=== PATIENT | male | born 1965 | race Caucasian/White ===

== ENCOUNTER 2021-03-19 17:40 | Inpatient (IN) ==
[2021-03-19] MEDS ORDERED: Isovue-370 500 ML BOTTLE IVP ONE (18:33)
[2021-03-19] MEDS ORDERED: 0.9 % Sodium Chloride 1,000 ML IVC ONE ×2 (18:33→22:36)
[2021-03-19] MEDS ORDERED: Aspirin 325 MG TABLET PO ONE (18:49)
[2021-03-19 18:51] LABS: Basophils % 0.2 %; Eosinophils % 0.2 %; Hematocrit 42.8 % (37.5-50.1); Hemoglobin 14.1 g/dL (12.9-16.9); Immature Granulocytes % 0.7 % (0-4); Lymphocytes # 0.4 K/mcL (0.6-4.6); Lymphocytes % 2.8 %; Mean Corpuscular HGB Conc 32.9 g/dL (31.6-35.5); Mean Corpuscular Hemoglobin 28.3 pg (28.0-33.3); Mean Corpuscular Volume 85.9 fL (83.0-100.0); Mean Platelet Volume 9.7 fL (9.4-12.4); Monocytes # 0.2 K/mcL (0.0-1.3); Monocytes % 1.4 %; Neutrophils # 14.4 K/mcL (1.6-8.9); Platelet Count 413 K/mcL (140-400); Red Blood Count 4.98 M/mcL (4.19-5.50); Red Cell Distribution Width 15.7 % (11.5-14.5); Segmented Neutrophils % 94.7 %; White Blood Count 15.2 K/mcL (4.3-11.1)
[2021-03-19] MEDS ORDERED: *HR* Heparin 5,000 UNIT/ML VIAL ONE (18:53)
[2021-03-19] MEDS ORDERED: *HR* Ticagrelor 90 MG TABLET ONE (18:53)
[2021-03-19] MEDS ORDERED: Aspirin 81 MG TAB.CHEW ONE (18:53)
[2021-03-19] MEDS ORDERED: Aspirin 81 MG TAB.CHEW PO ONE (18:57)
[2021-03-19] MEDS ORDERED: *HR* Heparin 5,000 UNIT/ML VIAL IVP ONE (18:58)
[2021-03-19] MEDS ORDERED: *HR* Ticagrelor 90 MG TABLET PO ONE (18:58)
[2021-03-19 19:06] LABS: Alanine Aminotransferase 12 Units/L (7-52); Albumin 2.9 g/dL (3.5-5.7); Albumin/Globulin Ratio 0.9 (1.1-2.2); Aspartate Amino Transferase 16 Units/L (13-39); BUN/Creatinine Ratio 10 (6-26); Bilirubin,Direct 0.2 mg/dL (0.0-0.2); Bilirubin,Indirect 0.5 mg/dL (0.0-1.0); Bilirubin,Total 0.7 mg/dL (0.3-1.0); Blood Urea Nitrogen 6 mg/dL (6-20); Calcium 8.6 mg/dL (8.6-10.3); Carbon Dioxide 22 mEq/L (23-29); Chloride 94 mEq/L (98-107); Globulin 3.2 g/dL (2.4-3.5); Glucose 137 mg/dL (70-105); Osmolality,Calculated 268 (280-300); Potassium 3.3 mEq/L (3.5-5.1); Sodium 129 mEq/L (136-145); Total Protein 6.1 g/dL (6.4-8.9); eGFR For African Americans > 60 (> 60); eGFR For Non-African Americans > 60 (> 60)
[2021-03-19 19:11] LABS: Alkaline Phosphatase 59 Units/L (34-104)
[2021-03-19 19:16] LABS: Bacteria,Urine Few per hpf (None-Few); Bilirubin,Urine Negative (Negative); Blood,Urine Small (Negative); Clarity,Urine Turbid (Clear); Color,Urine Light-Orange (Yellow); Glucose,Urine (UA) 30 mg/dL (Normal); Hyaline Casts,Urine Few per lpf (None Seen); Ketones,Urine 10 mg/dL (Negative); Leukocyte Esterase,Urine Moderate (Negative); Mucus,Urine Few per lpf (None-Few); Nitrite,Urine Negative (Negative); PH,Urine 6.5 pH Units (5.0-8.0); Protein,Urine 50 mg/dL (Neg-Trace); Specific Gravity,Urine 1.021 (1.010-1.025); Urobilinogen,Urine Normal (Normal); WBC,Urine 15-30 per hpf (0-3)
[2021-03-19] MEDS ORDERED: 0.9 % Sodium Chloride 2,000 ML ONE (19:17)
[2021-03-19] MEDS ORDERED: *HR* Heparin 10,000 UNIT/10 ML VIAL ONE (19:17)
[2021-03-19] MEDS ORDERED: Nitroglycerin 1,000 MCG/5 ML VIAL IV ONE (19:17)
[2021-03-19] MEDS ORDERED: ISOVUE-370 200 ML INFUS..BTL ONE ×2 (19:17→20:13)
[2021-03-19] MEDS ORDERED: Heparin 1,000 UNITS/500 mL 500 ML ONE (19:17)
[2021-03-19] MEDS ORDERED: *HR* FentaNYL (PF) 100 MCG/2 ML VIAL ONE (19:28)
[2021-03-19] MEDS ORDERED: *HR* Midazolam HCl 2 MG/2 ML VIAL ONE (19:28)
[2021-03-19] MEDS ORDERED: *HR* Bivalirudin 250 MG VIAL IVC ONE (19:28)
[2021-03-19 19:31] LABS: Troponin I 0.74 ng/mL (< 0.04)
[2021-03-19] MEDS ORDERED: 0.9 % Sodium Chloride 1,000 ML ONE (20:16)
[2021-03-19] MEDS ORDERED: Nitroglycerin 0.4 MG TAB.SUBL SL PRN (21:08)
[2021-03-19] MEDS ORDERED: 0.9 % Sodium Chloride 1,000 ML IVC SCH (21:15)
[2021-03-19] MEDS ORDERED: Perflutren Lipid Microsphere 1.3 ML in 0.9 % Sodium Chloride 8.7 ML IVP PRN (21:37)
[2021-03-19] MEDS ORDERED: *HR* Atropine Sulfate 1 MG/10 ML SYRINGE ONE (23:18)
[2021-03-19] MEDS: Piperacillin/Tazobactam 3.375 GM in 0.9 % Sodium Chloride Mini Bag 100 ML IVPB SCH (23:38)
[2021-03-19] MEDS ORDERED: Ondansetron 4 MG/2 ML VIAL IVP PRN (23:43)
[2021-03-20] MEDS: Vancomycin 1,250 MG/262.5 ML IV.SOLN IVPB SCH ×2 (00:01→11:26)
[2021-03-20 01:05] LABS: BUN/Creatinine Ratio 11 (6-26); Blood Urea Nitrogen 5 mg/dL (6-20); Calcium 7.7 mg/dL (8.6-10.3); Carbon Dioxide 22 mEq/L (23-29); Chloride 100 mEq/L (98-107); Glucose 87 mg/dL (70-105); Osmolality,Calculated 273 (280-300); Potassium 3.3 mEq/L (3.5-5.1); Sodium 133 mEq/L (136-145); eGFR For African Americans > 60 (> 60); eGFR For Non-African Americans > 60 (> 60)
[2021-03-20] MEDS ORDERED: Isovue-370 500 ML BOTTLE IVP ONE ×2 (01:14→11:31)
[2021-03-20] MEDS ORDERED: Prochlorperazine 10 MG/2 ML VIAL IVP PRN ×2 (05:08→11:31)
[2021-03-20] MEDS ORDERED: *HR* Enoxaparin 40 MG/0.4 ML SYRINGE SQ SCH (06:00)
[2021-03-20] MEDS: Piperacillin/Tazobactam 3.375 GM in 0.9 % Sodium Chloride Mini Bag 100 ML IVPB SCH ×2 (08:41→16:42)
[2021-03-20] MEDS ORDERED: *HR* Ticagrelor 90 MG TABLET PO SCH (09:00)
[2021-03-20] MEDS ORDERED: Aspirin 81 MG TAB.CHEW PO SCH (09:00)
[2021-03-20] MEDS ORDERED: lisinopriL 5 MG TABLET PO SCH (09:00)
[2021-03-20 10:19] LABS: Basophils # 0.1 K/mcL (0.0-0.2); Basophils % 0.4 %; Eosinophils # 0.1 K/mcL (0.0-0.6); Hematocrit 37.6 % (37.5-50.1); Hemoglobin 12.6 g/dL (12.9-16.9); Immature Granulocytes % 0.7 % (0-4); Lymphocytes # 0.6 K/mcL (0.6-4.6); Lymphocytes % 4.5 %; Mean Corpuscular HGB Conc 33.5 g/dL (31.6-35.5); Mean Corpuscular Volume 86.4 fL (83.0-100.0); Mean Platelet Volume 9.1 fL (9.4-12.4); Monocytes # 0.4 K/mcL (0.0-1.3); Neutrophils # 12.1 K/mcL (1.6-8.9); Platelet Count 380 K/mcL (140-400); Red Blood Count 4.35 M/mcL (4.19-5.50); Red Cell Distribution Width 15.8 % (11.5-14.5); Segmented Neutrophils % 90.4 %; White Blood Count 13.4 K/mcL (4.3-11.1)
[2021-03-20 10:39] LABS: BUN/Creatinine Ratio 13 (6-26); Blood Urea Nitrogen 5 mg/dL (6-20); Calcium 7.8 mg/dL (8.6-10.3); Carbon Dioxide 23 mEq/L (23-29); Chloride 100 mEq/L (98-107); Glucose 84 mg/dL (70-105); Osmolality,Calculated 270 (280-300); Potassium 3.2 mEq/L (3.5-5.1); Sodium 132 mEq/L (136-145); eGFR For African Americans > 60 (> 60); eGFR For Non-African Americans > 60 (> 60)
[2021-03-20] MEDS ORDERED: Ondansetron 4 MG/2 ML VIAL IVP PRN (11:31)
[2021-03-20] MEDS ORDERED: Nitroglycerin 0.4 MG TAB.SUBL SL PRN (11:31)
[2021-03-20] MEDS: Metoprolol XL (24 HR) Succ 25 MG TAB.ER.24H PO SCH (14:09)
[2021-03-20] MEDS: Melatonin 3 MG TABLET PO PRN (20:01)
[2021-03-20] MEDS: *HR* Ticagrelor 90 MG TABLET PO SCH (20:02)
[2021-03-20 21:12] LABS: Acinetobacter baumannii by PCR Not Detected (Not Detect); Candida albicans by PCR Not Detected (Not Detect); Candida glabrata by PCR Not Detected (Not Detect); Candida krusei by PCR Not Detected (Not Detect); Candida parapsilosis by PCR Not Detected (Not Detect); Candida tropicalis by PCR Not Detected (Not Detect); Enterobacter cloacae Cmplx PCR Not Detected (Not Detect); Enterobacteriaceae by PCR Not Detected (Not Detect); Enterococcus by PCR Not Detected (Not Detect); Escherichia coli by PCR Not Detected (Not Detect); Klebsiella oxytoca by PCR Not Detected (Not Detect); Klebsiella pneumoniae by PCR Not Detected (Not Detect); Proteus by PCR Not Detected (Not Detect); Pseudomonas aeruginosa by PCR Not Detected (Not Detect); Serratia marcescens by PCR Not Detected (Not Detect); Staphylococcus aureus by PCR DETECTED (Not Detect); Streptococcus agalactiae(B)PCR Not Detected (Not Detect); Streptococcus by PCR Not Detected (Not Detect); Streptococcus pneumoniae PCR Not Detected (Not Detect); Streptococcus pyogenes (A) PCR Not Detected (Not Detect); mecA Methicillin-Resist Gene Not Detected (Not Detect)
[2021-03-20] MEDS ORDERED: Vancomycin 1,250 MG/262.5 ML IV.SOLN IVPB SCH (23:00)
[2021-03-21] MEDS: Piperacillin/Tazobactam 3.375 GM in 0.9 % Sodium Chloride Mini Bag 100 ML IVPB SCH ×4 (00:15→23:35)
[2021-03-21 05:33] LABS: Hematocrit 37.8 % (37.5-50.1); Hemoglobin 12.3 g/dL (12.9-16.9); Mean Corpuscular HGB Conc 32.5 g/dL (31.6-35.5); Mean Corpuscular Hemoglobin 28.4 pg (28.0-33.3); Mean Corpuscular Volume 87.3 fL (83.0-100.0); Mean Platelet Volume 9.6 fL (9.4-12.4); Platelet Count 411 K/mcL (140-400); Red Blood Count 4.33 M/mcL (4.19-5.50); Red Cell Distribution Width 15.6 % (11.5-14.5); White Blood Count 10.5 K/mcL (4.3-11.1)
[2021-03-21 05:49] LABS: Carbon Dioxide 26 mEq/L (23-29); Chloride 99 mEq/L (98-107); Glucose 83 mg/dL (70-105); Magnesium 1.8 mg/dL (1.6-2.6); Sodium 133 mEq/L (136-145); eGFR For African Americans > 60 (> 60); eGFR For Non-African Americans > 60 (> 60)
[2021-03-21] MEDS: *HR* Enoxaparin 40 MG/0.4 ML SYRINGE SQ SCH (05:52)
[2021-03-21 06:04] LABS: BUN/Creatinine Ratio 18 (6-26); Blood Urea Nitrogen 7 mg/dL (6-20); Osmolality,Calculated 273 (280-300)
[2021-03-21] MEDS: lisinopriL 5 MG TABLET PO SCH (07:43)
[2021-03-21] MEDS: *HR* Ticagrelor 90 MG TABLET PO SCH ×2 (07:43→20:46)
[2021-03-21] MEDS: Aspirin 81 MG TAB.CHEW PO SCH (07:43)
[2021-03-21] MEDS: Metoprolol XL (24 HR) Succ 25 MG TAB.ER.24H PO SCH (07:44)
[2021-03-21] MEDS: rOPINIRole 0.25 MG TABLET PO SCH (10:42)
[2021-03-21] MEDS ORDERED: Latanoprost 2.5 ML BOTTLE BOTH EYES SCH (21:00)
[2021-03-21] MEDS: Melatonin 3 MG TABLET PO PRN (22:44)
[2021-03-22] MEDS: *HR* Enoxaparin 40 MG/0.4 ML SYRINGE SQ SCH (05:17)
[2021-03-22 06:36] VITALS: TEMP 97.7
[2021-03-22 06:49] LABS: Basophils # 0.1 K/mcL (0.0-0.2); Basophils % 0.8 %; Eosinophils # 0.2 K/mcL (0.0-0.6); Eosinophils % 3.1 %; Hematocrit 40.5 % (37.5-50.1); Hemoglobin 12.8 g/dL (12.9-16.9); Immature Granulocytes % 1.2 % (0-4); Lymphocytes # 1.3 K/mcL (0.6-4.6); Lymphocytes % 17.7 %; Mean Corpuscular HGB Conc 31.6 g/dL (31.6-35.5); Mean Corpuscular Hemoglobin 28.1 pg (28.0-33.3); Mean Corpuscular Volume 88.8 fL (83.0-100.0); Mean Platelet Volume 9.5 fL (9.4-12.4); Monocytes # 0.8 K/mcL (0.0-1.3); Monocytes % 10.9 %; Nucleated Red Blood Cells 0.5 /100 WBC (0); Platelet Count 449 K/mcL (140-400); Red Blood Count 4.56 M/mcL (4.19-5.50); Red Cell Distribution Width 15.5 % (11.5-14.5); Segmented Neutrophils % 66.3 %; White Blood Count 7.5 K/mcL (4.3-11.1)
[2021-03-22 07:15] LABS: Alanine Aminotransferase 12 Units/L (7-52); Albumin 2.8 g/dL (3.5-5.7); Albumin/Globulin Ratio 1.1 (1.1-2.2); Alkaline Phosphatase 51 Units/L (34-104); Aspartate Amino Transferase 21 Units/L (13-39); BUN/Creatinine Ratio 19 (6-26); Bilirubin,Total 0.6 mg/dL (0.3-1.0); Blood Urea Nitrogen 7 mg/dL (6-20); Calcium 7.9 mg/dL (8.6-10.3); Carbon Dioxide 22 mEq/L (23-29); Chloride 98 mEq/L (98-107); Globulin 2.6 g/dL (2.4-3.5); Glucose 84 mg/dL (70-105); Osmolality,Calculated 269 (280-300); Potassium 3.1 mEq/L (3.5-5.1); Sodium 131 mEq/L (136-145); Total Protein 5.4 g/dL (6.4-8.9); eGFR For African Americans > 60 (> 60); eGFR For Non-African Americans > 60 (> 60)
[2021-03-22 07:33] LABS: Anisocytosis 1+ (Not Present); Platelet Estimate Normal (Normal); Poikilocytosis 1+ (Not Present)
[2021-03-22] MEDS: Piperacillin/Tazobactam 3.375 GM in 0.9 % Sodium Chloride Mini Bag 100 ML IVPB SCH (08:03)
[2021-03-22] MEDS: rOPINIRole 0.25 MG TABLET PO SCH (08:04)
[2021-03-22] MEDS: lisinopriL 5 MG TABLET PO SCH (08:04)
[2021-03-22] MEDS: Aspirin 81 MG TAB.CHEW PO SCH (08:05)
[2021-03-22] MEDS: *HR* Ticagrelor 90 MG TABLET PO SCH (08:05)
[2021-03-22] MEDS: Metoprolol XL (24 HR) Succ 25 MG TAB.ER.24H PO SCH (08:05)
[2021-03-22 10:54] VITALS: BP 123/71; PULSE 62; O2SAT 99
== END 2021-03-22 13:00 | disposition home health service (06) | DRG 853 ==
LOC: ICNU 17:40 → EMEROOARM 17:40 → ICNU 19:38 → SUATTDRO 21:06 → CDU 03-20 15:09
PROVIDERS: ADMIT Internal Medicine; ATTEND Internal Medicine

== ENCOUNTER 2021-03-22 16:15 | Inpatient (IN) ==
[2021-03-22 18:25] LABS: Bacteria,Urine Few per hpf (None-Few); Bilirubin,Urine Negative (Negative); Blood,Urine Trace (Negative); Clarity,Urine Clear (Clear); Color,Urine Yellow (Yellow); Glucose,Urine (UA) Normal (Normal); Ketones,Urine 80 mg/dL (Negative); Leukocyte Esterase,Urine Trace (Negative); Mucus,Urine Few per lpf (None-Few); Nitrite,Urine Negative (Negative); Protein,Urine 30 mg/dL (Neg-Trace); Specific Gravity,Urine 1.026 (1.010-1.025)
[2021-03-22 19:14] LABS: Basophils # 0.1 K/mcL (0.0-0.2); Basophils % 0.9 %; Eosinophils # 0.1 K/mcL (0.0-0.6); Eosinophils % 0.8 %; Hematocrit 38.8 % (37.5-50.1); Hemoglobin 12.6 g/dL (12.9-16.9); Immature Granulocytes % 1.7 % (0-4); Lymphocytes # 1.3 K/mcL (0.6-4.6); Mean Corpuscular HGB Conc 32.5 g/dL (31.6-35.5); Mean Corpuscular Hemoglobin 28.6 pg (28.0-33.3); Mean Platelet Volume 9.4 fL (9.4-12.4); Monocytes # 0.8 K/mcL (0.0-1.3); Monocytes % 12.1 %; Neutrophils # 4.1 K/mcL (1.6-8.9); Nucleated Red Blood Cells 0.8 /100 WBC (0); Platelet Count 486 K/mcL (140-400); Red Blood Count 4.41 M/mcL (4.19-5.50); Red Cell Distribution Width 15.5 % (11.5-14.5); Segmented Neutrophils % 64.5 %; White Blood Count 6.4 K/mcL (4.3-11.1)
[2021-03-22 19:38] LABS: Alanine Aminotransferase 15 Units/L (7-52); Albumin 2.8 g/dL (3.5-5.7); Alkaline Phosphatase 53 Units/L (34-104); Aspartate Amino Transferase 26 Units/L (13-39); BUN/Creatinine Ratio 19 (6-26); Bilirubin,Total 0.5 mg/dL (0.3-1.0); Blood Urea Nitrogen 9 mg/dL (6-20); Calcium 8.2 mg/dL (8.6-10.3); Carbon Dioxide 24 mEq/L (23-29); Chloride 97 mEq/L (98-107); Globulin 2.7 g/dL (2.4-3.5); Glucose 90 mg/dL (70-105); Osmolality,Calculated 268 (280-300); Potassium 3.4 mEq/L (3.5-5.1); Sodium 130 mEq/L (136-145); Total Protein 5.5 g/dL (6.4-8.9); eGFR For African Americans > 60 (> 60); eGFR For Non-African Americans > 60 (> 60)
[2021-03-22 19:40] LABS: Troponin I 0.43 ng/mL (< 0.04)
[2021-03-22 19:42] LABS: Platelet Estimate Increased (Normal); Reactive Lymphocytes Present (Not Present)
[2021-03-22] MEDS ORDERED: Naloxone 0.4 MG/ML INJ IVP PRN (22:40)
[2021-03-22] MEDS ORDERED: 0.9 % Sodium Chloride 1,000 ML IVC SCH (23:30)
[2021-03-23 03:19] LABS: Basophils # 0.1 K/mcL (0.0-0.2); Basophils % 1.4 %; Eosinophils # 0.1 K/mcL (0.0-0.6); Eosinophils % 1.6 %; Immature Granulocytes % 1.9 % (0-4); Lymphocytes # 1.5 K/mcL (0.6-4.6); Lymphocytes % 24.3 %; Mean Corpuscular HGB Conc 33.3 g/dL (31.6-35.5); Mean Corpuscular Hemoglobin 29.2 pg (28.0-33.3); Mean Corpuscular Volume 87.6 fL (83.0-100.0); Mean Platelet Volume 9.3 fL (9.4-12.4); Monocytes # 0.9 K/mcL (0.0-1.3); Monocytes % 14.9 %; Neutrophils # 3.5 K/mcL (1.6-8.9); Nucleated Red Blood Cells 0.8 /100 WBC (0); Platelet Count 475 K/mcL (140-400); Red Blood Count 4.45 M/mcL (4.19-5.50); Red Cell Distribution Width 15.4 % (11.5-14.5); Segmented Neutrophils % 55.9 %; White Blood Count 6.3 K/mcL (4.3-11.1)
[2021-03-23 03:26] LABS: INR 1.1
[2021-03-23 03:40] LABS: BUN/Creatinine Ratio 24 (6-26); Blood Urea Nitrogen 8 mg/dL (6-20); Calcium 7.9 mg/dL (8.6-10.3); Carbon Dioxide 20 mEq/L (23-29); Chloride 99 mEq/L (98-107); Glucose 83 mg/dL (70-105); Magnesium 1.7 mg/dL (1.6-2.6); Osmolality,Calculated 269 (280-300); Potassium 3.3 mEq/L (3.5-5.1); Sodium 131 mEq/L (136-145); eGFR For African Americans > 60 (> 60); eGFR For Non-African Americans > 60 (> 60)
[2021-03-23 03:52] LABS: Burr Cells 1+ (Not Present); Platelet Estimate Increased (Normal); Poikilocytosis 1+ (Not Present)
[2021-03-23 03:53] LABS: Thyroid Stimulating Hormone 6.677 mcIU/mL (0.340-5.600)
[2021-03-23] MEDS: rOPINIRole 0.25 MG TABLET PO SCH (10:36)
[2021-03-23] MEDS: lisinopriL 5 MG TABLET PO SCH (10:36)
[2021-03-23] MEDS: Metoprolol XL (24 HR) Succ 25 MG TAB.ER.24H PO SCH (10:36)
[2021-03-23] MEDS: Aspirin Enteric Coated 81 MG Tablet PO SCH (10:37)
[2021-03-23] MEDS: *HR* Ticagrelor 90 MG TABLET PO SCH ×2 (10:37→20:53)
[2021-03-23] MEDS: Latanoprost 2.5 ML BOTTLE BOTH EYES SCH (21:03)
[2021-03-23] MEDS: Melatonin 3 MG TABLET PO PRN (22:25)
[2021-03-24] MEDS: rOPINIRole 0.25 MG TABLET PO SCH (08:31)
[2021-03-24] MEDS: Metoprolol XL (24 HR) Succ 25 MG TAB.ER.24H PO SCH ×2 (08:31→08:46)
[2021-03-24] MEDS: lisinopriL 5 MG TABLET PO SCH ×2 (08:31→08:46)
[2021-03-24] MEDS: *HR* Ticagrelor 90 MG TABLET PO SCH ×2 (08:31→20:26)
[2021-03-24] MEDS: Aspirin Enteric Coated 81 MG Tablet PO SCH (08:31)
[2021-03-24] MEDS ORDERED: 0.9 % Sodium Chloride 1,000 ML ONE (09:23)
[2021-03-24] MEDS ORDERED: 0.9 % Sodium Chloride 1,000 ML IVC ONE (09:31)
[2021-03-24 10:09] LABS: Basophils # 0.1 K/mcL (0.0-0.2); Basophils % 0.9 %; Eosinophils % 0.5 %; Hematocrit 37.9 % (37.5-50.1); Hemoglobin 12.4 g/dL (12.9-16.9); Lymphocytes # 1.2 K/mcL (0.6-4.6); Lymphocytes % 15.5 %; Mean Corpuscular HGB Conc 32.7 g/dL (31.6-35.5); Mean Corpuscular Hemoglobin 28.5 pg (28.0-33.3); Mean Corpuscular Volume 87.1 fL (83.0-100.0); Mean Platelet Volume 9.4 fL (9.4-12.4); Monocytes % 12.9 %; Neutrophils # 5.2 K/mcL (1.6-8.9); Nucleated Red Blood Cells 0.7 /100 WBC (0); Platelet Count 555 K/mcL (140-400); Red Blood Count 4.35 M/mcL (4.19-5.50); Red Cell Distribution Width 15.4 % (11.5-14.5); Segmented Neutrophils % 67.2 %; White Blood Count 7.7 K/mcL (4.3-11.1)
[2021-03-24 10:17] LABS: INR 1.2; Prothrombin Time 13.8 Seconds (9.4-12.1)
[2021-03-24] MEDS ORDERED: Isovue-370 500 ML BOTTLE IVP ONE (10:27)
[2021-03-24 10:29] LABS: Alanine Aminotransferase 17 Units/L (7-52); Albumin 2.9 g/dL (3.5-5.7); Albumin/Globulin Ratio 1.2 (1.1-2.2); Alkaline Phosphatase 50 Units/L (34-104); Aspartate Amino Transferase 30 Units/L (13-39); BUN/Creatinine Ratio 22 (6-26); Bilirubin,Total 0.5 mg/dL (0.3-1.0); Blood Urea Nitrogen 13 mg/dL (6-20); Calcium 8.1 mg/dL (8.6-10.3); Carbon Dioxide 23 mEq/L (23-29); Chloride 100 mEq/L (98-107); Globulin 2.5 g/dL (2.4-3.5); Glucose 126 mg/dL (70-105); Osmolality,Calculated 276 (280-300); Sodium 132 mEq/L (136-145); Total Protein 5.4 g/dL (6.4-8.9); eGFR For African Americans > 60 (> 60); eGFR For Non-African Americans > 60 (> 60)
[2021-03-24 10:30] LABS: Magnesium 1.8 mg/dL (1.6-2.6)
[2021-03-24] MEDS: 0.9 % Sodium Chloride 1,000 ML IVC SCH ×2 (10:30→20:56)
[2021-03-24 10:35] LABS: Troponin I 0.28 ng/mL (< 0.04)
[2021-03-24] MEDS: Acetaminophen 325 MG TABLET PO PRN (16:44)
[2021-03-24 17:06] LABS: Adenovirus F 40/41 PCR Not detected (Not detect); Astrovirus PCR Not detected (Not detect); C.difficile Toxin A/B Gene PCR Not detected (Not detect); Campylobacter by PCR Not detected (Not detect); Cryptosporidium by PCR Not detected (Not detect); Cyclospora cayetanensis PCR Not detected (Not detect); E. coli O157 by PCR Not detected (Not detect); Entamoeba histolytica PCR Not detected (Not detect); Enteroaggregative E.coli(EAEC) Not detected (Not detect); Enteropathogenic E.coli(EPEC) Not detected (Not detect); Enterotoxigenic E.coli (ETEC) Not detected (Not detect); Giardia lamblia PCR Not detected (Not detect); Norovirus GI/GII PCR Not detected (Not detect); Plesiomonas shigelloides PCR Not detected (Not detect); Rotavirus A PCR Not detected (Not detect); Salmonella PCR Not detected (Not detect); Sapovirus PCR Not detected (Not detect); Shig/EnteroinvasiveE coli EIEC Not detected (Not detect); Shigalike tox-prod E coli STEC Not detected (Not detect); Vibrio PCR Not detected (Not detect); Vibrio cholerae PCR Not detected (Not detect); Yersinia enterocolitica PCR Not detected (Not detect)
[2021-03-24 17:47] LABS: Hematocrit 36.6 % (37.5-50.1); Hemoglobin 12.2 g/dL (12.9-16.9)
[2021-03-24] MEDS: Melatonin 3 MG TABLET PO PRN (20:26)
[2021-03-24] MEDS: Latanoprost 2.5 ML BOTTLE BOTH EYES SCH (20:47)
[2021-03-24] MEDS: Ondansetron 4 MG/2 ML VIAL IVP PRN (21:59)
[2021-03-25 02:19] LABS: Hematocrit 34.8 % (37.5-50.1); Hemoglobin 11.2 g/dL (12.9-16.9); Mean Corpuscular HGB Conc 32.2 g/dL (31.6-35.5); Mean Corpuscular Hemoglobin 28.1 pg (28.0-33.3); Mean Corpuscular Volume 87.2 fL (83.0-100.0); Mean Platelet Volume 9.4 fL (9.4-12.4); Platelet Count 602 K/mcL (140-400); Red Blood Count 3.99 M/mcL (4.19-5.50); Red Cell Distribution Width 15.4 % (11.5-14.5)
[2021-03-25 02:21] LABS: Hematocrit 34.2 % (37.5-50.1); Hemoglobin 11.1 g/dL (12.9-16.9)
[2021-03-25 02:33] LABS: BUN/Creatinine Ratio 28 (6-26); Blood Urea Nitrogen 11 mg/dL (6-20); Carbon Dioxide 22 mEq/L (23-29); Chloride 102 mEq/L (98-107); Glucose 88 mg/dL (70-105); Magnesium 1.8 mg/dL (1.6-2.6); Osmolality,Calculated 277 (280-300); Phosphorous 2.6 mg/dL (2.7-4.5); Potassium 3.3 mEq/L (3.5-5.1); Sodium 134 mEq/L (136-145); eGFR For African Americans > 60 (> 60); eGFR For Non-African Americans > 60 (> 60)
[2021-03-25 03:53] LABS: Hematocrit 33.4 % (37.5-50.1)
[2021-03-25] MEDS: 0.9 % Sodium Chloride 1,000 ML IVC SCH ×2 (06:37→09:51)
[2021-03-25] MEDS: lisinopriL 5 MG TABLET PO SCH (09:41)
[2021-03-25] MEDS: Metoprolol XL (24 HR) Succ 25 MG TAB.ER.24H PO SCH (09:41)
[2021-03-25] MEDS: rOPINIRole 0.25 MG TABLET PO SCH (09:41)
[2021-03-25] MEDS: Aspirin Enteric Coated 81 MG Tablet PO SCH (09:42)
[2021-03-25] MEDS: *HR* Ticagrelor 90 MG TABLET PO SCH ×2 (09:52→20:12)
[2021-03-25] MEDS ORDERED: Potassium Chloride Elixir 20 MEQ/15 ML UDC PO ONE (12:31)
[2021-03-25] MEDS: Ondansetron 4 MG/2 ML VIAL IVP PRN (17:53)
[2021-03-25] MEDS: Latanoprost 2.5 ML BOTTLE BOTH EYES SCH (20:02)
[2021-03-25] MEDS: Melatonin 3 MG TABLET PO PRN (20:09)
[2021-03-26] MEDS: Aspirin Enteric Coated 81 MG Tablet PO SCH (09:00)
[2021-03-26] MEDS: Metoprolol XL (24 HR) Succ 25 MG TAB.ER.24H PO SCH (09:53)
[2021-03-26] MEDS: lisinopriL 5 MG TABLET PO SCH (09:53)
[2021-03-26] MEDS: rOPINIRole 0.25 MG TABLET PO SCH (09:53)
[2021-03-26] MEDS: *HR* Ticagrelor 90 MG TABLET PO SCH ×2 (09:54→20:38)
[2021-03-26] MEDS: Ondansetron 4 MG/2 ML VIAL IVP PRN (09:54)
[2021-03-26] MEDS ORDERED: *HR* Propofol 200 MG/20 ML VIAL IVP ONE ×2 (14:15→14:51)
[2021-03-26] MEDS ORDERED: Lidocaine -MPF 2% 5 ML VIAL ONE (14:30)
[2021-03-26] MEDS ORDERED: Furosemide 40 MG/4 ML VIAL IVP ONE (15:00)
[2021-03-26] MEDS ORDERED: Ipratropium/Albuterol Neb 3 ML IH PRN (15:09)
[2021-03-26] MEDS ORDERED: EPHEDrine 50 MG/ML VIAL ONE (15:14)
[2021-03-26] MEDS ORDERED: *HR* FentaNYL (PF) 100 MCG/2 ML VIAL ONE (15:38)
[2021-03-26] MEDS: Latanoprost 2.5 ML BOTTLE BOTH EYES SCH (20:24)
[2021-03-27] MEDS: Acetaminophen 325 MG TABLET PO PRN (02:56)
[2021-03-27 05:15] LABS: Basophils # 0.1 K/mcL (0.0-0.2); Basophils % 0.4 %; Immature Granulocytes % 1.4 % (0-4); Lymphocytes # 1.1 K/mcL (0.6-4.6); Lymphocytes % 4.3 %; Mean Corpuscular HGB Conc 32.4 g/dL (31.6-35.5); Mean Corpuscular Hemoglobin 28.4 pg (28.0-33.3); Mean Corpuscular Volume 87.5 fL (83.0-100.0); Mean Platelet Volume 9.4 fL (9.4-12.4); Monocytes # 1.3 K/mcL (0.0-1.3); Monocytes % 5.3 %; Neutrophils # 22.1 K/mcL (1.6-8.9); Nucleated Red Blood Cells 0.1 /100 WBC (0); Platelet Count 791 K/mcL (140-400); Red Blood Count 4.23 M/mcL (4.19-5.50); Red Cell Distribution Width 15.6 % (11.5-14.5); Segmented Neutrophils % 88.6 %
[2021-03-27 05:27] LABS: White Blood Count 24.9 K/mcL (4.3-11.1)
[2021-03-27 06:05] LABS: BUN/Creatinine Ratio 17 (6-26); Blood Urea Nitrogen 8 mg/dL (6-20); Calcium 8.5 mg/dL (8.6-10.3); Carbon Dioxide 25 mEq/L (23-29); Chloride 95 mEq/L (98-107); Glucose 71 mg/dL (70-105); Osmolality,Calculated 271 (280-300); Potassium 3.1 mEq/L (3.5-5.1); Sodium 132 mEq/L (136-145); eGFR For African Americans > 60 (> 60); eGFR For Non-African Americans > 60 (> 60)
[2021-03-27] MEDS: rOPINIRole 0.25 MG TABLET PO SCH (08:19)
[2021-03-27] MEDS: Aspirin Enteric Coated 81 MG Tablet PO SCH (08:19)
[2021-03-27] MEDS: lisinopriL 5 MG TABLET PO SCH (08:19)
[2021-03-27] MEDS: Metoprolol XL (24 HR) Succ 25 MG TAB.ER.24H PO SCH (08:19)
[2021-03-27] MEDS: *HR* Ticagrelor 90 MG TABLET PO SCH (08:24)
[2021-03-27] MEDS ORDERED: E-Z-HD (BARIUM SULF) SUSPENSION PO ONE (12:38)
[2021-03-27] MEDS ORDERED: E-Z-PAQUE (BARIUM SULF) SUSP 1 BOTTLE PO ONE (12:38)
[2021-03-27] MEDS: Latanoprost 2.5 ML BOTTLE BOTH EYES SCH (20:10)
[2021-03-27] MEDS: Melatonin 3 MG TABLET PO PRN (20:22)
[2021-03-27] MEDS: Cangrelor tetrasodium 50 MG in 0.9 % Sodium Chloride 250 ML IVC SCH (20:29)
[2021-03-27] MEDS: 0.9 % Sodium Chloride 1,000 ML IVC SCH (20:30)
[2021-03-27] MEDS ORDERED: *HR* Ticagrelor 90 MG TABLET PO SCH (21:00)
[2021-03-27] MEDS: Ondansetron 4 MG/2 ML VIAL IVP PRN (22:10)
[2021-03-28] MEDS: Aspirin Enteric Coated 81 MG Tablet PO SCH (10:08)
[2021-03-28] MEDS: rOPINIRole 0.25 MG TABLET PO SCH (10:08)
[2021-03-28] MEDS: Metoprolol XL (24 HR) Succ 25 MG TAB.ER.24H PO SCH (10:08)
[2021-03-28] MEDS: lisinopriL 5 MG TABLET PO SCH (10:08)
[2021-03-28 12:42] LABS: Basophils # 0.1 K/mcL (0.0-0.2); Basophils % 0.5 %; Eosinophils # 0.1 K/mcL (0.0-0.6); Eosinophils % 0.3 %; Hematocrit 35.9 % (37.5-50.1); Hemoglobin 11.8 g/dL (12.9-16.9); Immature Granulocytes % 1.6 % (0-4); Lymphocytes # 1.1 K/mcL (0.6-4.6); Mean Corpuscular HGB Conc 32.9 g/dL (31.6-35.5); Mean Corpuscular Hemoglobin 28.4 pg (28.0-33.3); Mean Corpuscular Volume 86.5 fL (83.0-100.0); Mean Platelet Volume 9.6 fL (9.4-12.4); Monocytes # 1.3 K/mcL (0.0-1.3); Neutrophils # 19.5 K/mcL (1.6-8.9); Nucleated Red Blood Cells 0.2 /100 WBC (0); Platelet Count 799 K/mcL (140-400); Red Blood Count 4.15 M/mcL (4.19-5.50); Red Cell Distribution Width 15.6 % (11.5-14.5); Segmented Neutrophils % 86.6 %; White Blood Count 22.5 K/mcL (4.3-11.1)
[2021-03-28 15:49] LABS: BUN/Creatinine Ratio 24 (6-26); Blood Urea Nitrogen 9 mg/dL (6-20); Calcium 8.2 mg/dL (8.6-10.3); Carbon Dioxide 24 mEq/L (23-29); Chloride 99 mEq/L (98-107); Glucose 81 mg/dL (70-105); Osmolality,Calculated 276 (280-300); Sodium 134 mEq/L (136-145); eGFR For African Americans > 60 (> 60); eGFR For Non-African Americans > 60 (> 60)
[2021-03-28] MEDS: 0.9 % Sodium Chloride 1,000 ML IVC SCH (17:26)
[2021-03-28] MEDS: Cangrelor tetrasodium 50 MG in 0.9 % Sodium Chloride 250 ML IVC SCH (20:53)
[2021-03-28] MEDS: Ondansetron 4 MG/2 ML VIAL IVP PRN (20:55)
[2021-03-28] MEDS: Latanoprost 2.5 ML BOTTLE BOTH EYES SCH (21:49)
[2021-03-29] MEDS: Acetaminophen 325 MG TABLET PO PRN (05:01)
[2021-03-29 06:23] LABS: Basophils # 0.1 K/mcL (0.0-0.2); Basophils % 0.5 %; Eosinophils # 0.1 K/mcL (0.0-0.6); Eosinophils % 0.7 %; Hematocrit 37.5 % (37.5-50.1); Hemoglobin 12.4 g/dL (12.9-16.9); Immature Granulocytes % 1.2 % (0-4); Lymphocytes # 1.6 K/mcL (0.6-4.6); Lymphocytes % 9.6 %; Mean Corpuscular HGB Conc 33.1 g/dL (31.6-35.5); Mean Corpuscular Hemoglobin 29.5 pg (28.0-33.3); Mean Corpuscular Volume 89.1 fL (83.0-100.0); Mean Platelet Volume 9.5 fL (9.4-12.4); Monocytes # 1.1 K/mcL (0.0-1.3); Monocytes % 6.9 %; Neutrophils # 13.4 K/mcL (1.6-8.9); Nucleated Red Blood Cells 0.3 /100 WBC (0); Platelet Count 870 K/mcL (140-400); Red Blood Count 4.21 M/mcL (4.19-5.50); Red Cell Distribution Width 15.7 % (11.5-14.5); Segmented Neutrophils % 81.1 %; White Blood Count 16.5 K/mcL (4.3-11.1)
[2021-03-29 07:18] LABS: Phosphorous 2.5 mg/dL (2.7-4.5)
[2021-03-29 07:19] LABS: BUN/Creatinine Ratio 22 (6-26); Blood Urea Nitrogen 10 mg/dL (6-20); Calcium 8.6 mg/dL (8.6-10.3); Carbon Dioxide 23 mEq/L (23-29); Chloride 97 mEq/L (98-107); Glucose 77 mg/dL (70-105); Osmolality,Calculated 278 (280-300); Potassium 3.4 mEq/L (3.5-5.1); Sodium 135 mEq/L (136-145); eGFR For African Americans > 60 (> 60); eGFR For Non-African Americans > 60 (> 60)
[2021-03-29] MEDS: Aspirin Enteric Coated 81 MG Tablet PO SCH (09:50)
[2021-03-29] MEDS: rOPINIRole 0.25 MG TABLET PO SCH (09:50)
[2021-03-29] MEDS: Metoprolol XL (24 HR) Succ 25 MG TAB.ER.24H PO SCH (09:50)
[2021-03-29] MEDS: lisinopriL 5 MG TABLET PO SCH (09:51)
[2021-03-29] MEDS: 0.9 % Sodium Chloride 1,000 ML IVC SCH (09:53)
[2021-03-29] MEDS: Ondansetron 4 MG/2 ML VIAL IVP PRN (19:59)
[2021-03-29] MEDS: Latanoprost 2.5 ML BOTTLE BOTH EYES SCH (20:00)
[2021-03-29] MEDS: Melatonin 3 MG TABLET PO PRN (20:11)
[2021-03-29] MEDS: Cangrelor tetrasodium 50 MG in 0.9 % Sodium Chloride 250 ML IVC SCH (20:47)
[2021-03-30 03:27] LABS: Basophils # 0.1 K/mcL (0.0-0.2); Basophils % 0.9 %; Eosinophils # 0.1 K/mcL (0.0-0.6); Eosinophils % 0.7 %; Hematocrit 37.6 % (37.5-50.1); Hemoglobin 12.1 g/dL (12.9-16.9); Immature Granulocytes % 1.3 % (0-4); Lymphocytes # 1.7 K/mcL (0.6-4.6); Lymphocytes % 13.4 %; Mean Corpuscular HGB Conc 32.2 g/dL (31.6-35.5); Mean Corpuscular Hemoglobin 28.6 pg (28.0-33.3); Mean Corpuscular Volume 88.9 fL (83.0-100.0); Mean Platelet Volume 9.6 fL (9.4-12.4); Monocytes # 1.1 K/mcL (0.0-1.3); Monocytes % 8.2 %; Neutrophils # 9.7 K/mcL (1.6-8.9); Nucleated Red Blood Cells 0.5 /100 WBC (0); Platelet Count 867 K/mcL (140-400); Red Blood Count 4.23 M/mcL (4.19-5.50); Red Cell Distribution Width 15.7 % (11.5-14.5); Segmented Neutrophils % 75.5 %; White Blood Count 12.9 K/mcL (4.3-11.1)
[2021-03-30 03:49] LABS: BUN/Creatinine Ratio 18 (6-26); Blood Urea Nitrogen 8 mg/dL (6-20); Calcium 8.3 mg/dL (8.6-10.3); Carbon Dioxide 24 mEq/L (23-29); Chloride 99 mEq/L (98-107); Glucose 68 mg/dL (70-105); Osmolality,Calculated 277 (280-300); Potassium 3.5 mEq/L (3.5-5.1); Sodium 135 mEq/L (136-145); eGFR For African Americans > 60 (> 60); eGFR For Non-African Americans > 60 (> 60)
[2021-03-30] MEDS: 0.9 % Sodium Chloride 1,000 ML IVC SCH (06:11)
[2021-03-30] MEDS ORDERED: *HR* Propofol 200 MG/20 ML VIAL IVP ONE ×2 (10:09→10:17)
[2021-03-30] MEDS ORDERED: Lidocaine -MPF 2% 2 ML VIAL ONE (10:31)
[2021-03-30] MEDS: Aspirin Enteric Coated 81 MG Tablet PO SCH (11:14)
[2021-03-30] MEDS: Metoprolol XL (24 HR) Succ 25 MG TAB.ER.24H PO SCH (11:14)
[2021-03-30] MEDS: rOPINIRole 0.25 MG TABLET PO SCH (11:14)
[2021-03-30] MEDS: lisinopriL 5 MG TABLET PO SCH (11:14)
[2021-03-30] MEDS: Ondansetron 4 MG/2 ML VIAL IVP PRN (14:31)
[2021-03-30] MEDS: Acetaminophen 325 MG TABLET PO PRN (17:32)
[2021-03-30] MEDS: Latanoprost 2.5 ML BOTTLE BOTH EYES SCH (20:26)
[2021-03-30] MEDS: Melatonin 3 MG TABLET PO PRN (20:28)
[2021-03-30] MEDS: Cangrelor tetrasodium 50 MG in 0.9 % Sodium Chloride 250 ML IVC SCH (22:04)
[2021-03-31 01:25] LABS: Basophils # 0.1 K/mcL (0.0-0.2); Basophils % 1.2 %; Eosinophils # 0.1 K/mcL (0.0-0.6); Eosinophils % 0.8 %; Hematocrit 35.4 % (37.5-50.1); Hemoglobin 11.7 g/dL (12.9-16.9); Immature Granulocytes % 1.1 % (0-4); Lymphocytes # 2.3 K/mcL (0.6-4.6); Lymphocytes % 24.8 %; Mean Corpuscular HGB Conc 33.1 g/dL (31.6-35.5); Mean Corpuscular Volume 87.8 fL (83.0-100.0); Mean Platelet Volume 9.6 fL (9.4-12.4); Monocytes % 10.8 %; Neutrophils # 5.6 K/mcL (1.6-8.9); Nucleated Red Blood Cells 0.7 /100 WBC (0); Platelet Count 862 K/mcL (140-400); Red Blood Count 4.03 M/mcL (4.19-5.50); Red Cell Distribution Width 15.6 % (11.5-14.5); Segmented Neutrophils % 61.3 %; White Blood Count 9.1 K/mcL (4.3-11.1)
[2021-03-31 01:37] LABS: BUN/Creatinine Ratio 23 (6-26); Blood Urea Nitrogen 9 mg/dL (6-20); Calcium 8.1 mg/dL (8.6-10.3); Carbon Dioxide 24 mEq/L (23-29); Chloride 100 mEq/L (98-107); Glucose 92 mg/dL (70-105); Osmolality,Calculated 276 (280-300); Potassium 3.3 mEq/L (3.5-5.1); Sodium 134 mEq/L (136-145); eGFR For African Americans > 60 (> 60); eGFR For Non-African Americans > 60 (> 60)
[2021-03-31 01:57] LABS: Platelet Estimate Marked Increase (Normal); Reactive Lymphocytes Present (Not Present); Toxic Granulation Present (Not Present)
[2021-03-31] MEDS ORDERED: *HR* Ticagrelor 90 MG TABLET PO ONE (08:27)
[2021-03-31] MEDS ORDERED: Cangrelor tetrasodium 50 MG in 0.9 % Sodium Chloride 250 ML IVC SCH (08:29)
[2021-03-31] MEDS: rOPINIRole 0.25 MG TABLET PO SCH (09:48)
[2021-03-31] MEDS: Aspirin Enteric Coated 81 MG Tablet PO SCH (09:49)
[2021-03-31] MEDS: lisinopriL 5 MG TABLET PO SCH (09:49)
[2021-03-31] MEDS: Metoprolol XL (24 HR) Succ 25 MG TAB.ER.24H PO SCH (09:49)
[2021-03-31] MEDS: 0.9 % Sodium Chloride 1,000 ML IVC SCH (09:49)
[2021-03-31] MEDS: *HR* Ticagrelor 90 MG TABLET PO SCH (20:21)
[2021-03-31] MEDS: Melatonin 3 MG TABLET PO PRN (20:21)
[2021-03-31] MEDS: Latanoprost 2.5 ML BOTTLE BOTH EYES SCH (20:41)
[2021-04-01 05:16] LABS: Basophils # 0.1 K/mcL (0.0-0.2); Basophils % 1.4 %; Eosinophils # 0.1 K/mcL (0.0-0.6); Hematocrit 40.4 % (37.5-50.1); Immature Granulocytes % 0.7 % (0-4); Lymphocytes # 1.6 K/mcL (0.6-4.6); Lymphocytes % 20.1 %; Mean Corpuscular HGB Conc 32.9 g/dL (31.6-35.5); Mean Corpuscular Hemoglobin 28.6 pg (28.0-33.3); Mean Corpuscular Volume 86.9 fL (83.0-100.0); Mean Platelet Volume 9.4 fL (9.4-12.4); Monocytes # 0.9 K/mcL (0.0-1.3); Monocytes % 11.2 %; Neutrophils # 5.3 K/mcL (1.6-8.9); Platelet Count 910 K/mcL (140-400); Red Blood Count 4.65 M/mcL (4.19-5.50); Red Cell Distribution Width 15.7 % (11.5-14.5); Segmented Neutrophils % 65.6 %
[2021-04-01 05:25] LABS: Hemoglobin 13.3 g/dL (12.9-16.9)
[2021-04-01 05:33] LABS: BUN/Creatinine Ratio 14 (6-26); Blood Urea Nitrogen 6 mg/dL (6-20); Calcium 8.6 mg/dL (8.6-10.3); Carbon Dioxide 25 mEq/L (23-29); Chloride 98 mEq/L (98-107); Glucose 113 mg/dL (70-105); Osmolality,Calculated 274 (280-300); Potassium 3.4 mEq/L (3.5-5.1); Sodium 133 mEq/L (136-145); eGFR For African Americans > 60 (> 60); eGFR For Non-African Americans > 60 (> 60)
[2021-04-01 05:43] LABS: Platelet Estimate Marked Increase (Normal); Reactive Lymphocytes Present (Not Present)
[2021-04-01] MEDS: *HR* Ticagrelor 90 MG TABLET PO SCH ×2 (08:00→20:13)
[2021-04-01] MEDS: rOPINIRole 0.25 MG TABLET PO SCH (08:00)
[2021-04-01] MEDS: lisinopriL 5 MG TABLET PO SCH (08:00)
[2021-04-01] MEDS: Metoprolol XL (24 HR) Succ 25 MG TAB.ER.24H PO SCH (08:01)
[2021-04-01] MEDS: Aspirin Enteric Coated 81 MG Tablet PO SCH (08:01)
[2021-04-01] MEDS: Acetaminophen 325 MG TABLET PO PRN ×2 (14:00→20:12)
[2021-04-01] MEDS: Melatonin 3 MG TABLET PO PRN (20:13)
[2021-04-01] MEDS: Latanoprost 2.5 ML BOTTLE BOTH EYES SCH (20:14)
[2021-04-02 05:52] LABS: Basophils # 0.1 K/mcL (0.0-0.2); Basophils % 1.1 %; Eosinophils # 0.1 K/mcL (0.0-0.6); Eosinophils % 0.9 %; Hemoglobin 13.2 g/dL (12.9-16.9); Immature Granulocytes % 0.7 % (0-4); Lymphocytes # 2.1 K/mcL (0.6-4.6); Lymphocytes % 23.2 %; Mean Corpuscular HGB Conc 32.2 g/dL (31.6-35.5); Mean Corpuscular Hemoglobin 28.2 pg (28.0-33.3); Mean Corpuscular Volume 87.6 fL (83.0-100.0); Mean Platelet Volume 9.5 fL (9.4-12.4); Monocytes # 0.9 K/mcL (0.0-1.3); Monocytes % 10.1 %; Neutrophils # 5.7 K/mcL (1.6-8.9); Nucleated Red Blood Cells 0.5 /100 WBC (0); Platelet Count 899 K/mcL (140-400); Red Blood Count 4.68 M/mcL (4.19-5.50); Red Cell Distribution Width 15.7 % (11.5-14.5); White Blood Count 8.9 K/mcL (4.3-11.1)
[2021-04-02 06:17] LABS: BUN/Creatinine Ratio 20 (6-26); Blood Urea Nitrogen 11 mg/dL (6-20); Carbon Dioxide 26 mEq/L (23-29); Chloride 99 mEq/L (98-107); Glucose 124 mg/dL (70-105); Magnesium 1.9 mg/dL (1.6-2.6); Osmolality,Calculated 279 (280-300); Phosphorous 3.4 mg/dL (2.7-4.5); Potassium 3.3 mEq/L (3.5-5.1); Sodium 134 mEq/L (136-145); eGFR For African Americans > 60 (> 60); eGFR For Non-African Americans > 60 (> 60)
[2021-04-02 06:35] LABS: Poikilocytosis 1+ (Not Present)
[2021-04-02 06:36] LABS: Burr Cells 1+ (Not Present); Platelet Estimate Marked Decrease (Normal); Toxic Granulation Present (Not Present)
[2021-04-02 06:37] LABS: Reactive Lymphocytes Present (Not Present)
[2021-04-02] MEDS ORDERED: Potassium Chloride Elixir 20 MEQ/15 ML UDC PO ONE (07:34)
[2021-04-02] MEDS: rOPINIRole 0.25 MG TABLET PO SCH (08:01)
[2021-04-02] MEDS: Aspirin Enteric Coated 81 MG Tablet PO SCH (08:02)
[2021-04-02] MEDS: lisinopriL 5 MG TABLET PO SCH (08:02)
[2021-04-02] MEDS: *HR* Ticagrelor 90 MG TABLET PO SCH ×2 (08:02→20:35)
[2021-04-02] MEDS: Metoprolol XL (24 HR) Succ 25 MG TAB.ER.24H PO SCH (08:02)
[2021-04-02] MEDS: Acetaminophen 325 MG TABLET PO PRN ×2 (11:03→20:35)
[2021-04-02 13:58] LABS: INR 1.1; Prothrombin Time 11.9 Seconds (9.4-12.1)
[2021-04-02] MEDS ORDERED: 0.9 % Sodium Chloride 1,000 ML IVC ONE (15:37)
[2021-04-02 16:39] LABS: Hematocrit 37.8 % (37.5-50.1)
[2021-04-02] MEDS: Melatonin 3 MG TABLET PO PRN (20:35)
[2021-04-03] MEDS: Latanoprost 2.5 ML BOTTLE BOTH EYES SCH ×2 (06:06→20:21)
[2021-04-03] MEDS: Metoprolol XL (24 HR) Succ 25 MG TAB.ER.24H PO SCH (06:44)
[2021-04-03] MEDS: lisinopriL 5 MG TABLET PO SCH (06:44)
[2021-04-03 06:52] LABS: BUN/Creatinine Ratio 28 (6-26); Blood Urea Nitrogen 11 mg/dL (6-20); Carbon Dioxide 24 mEq/L (23-29); Chloride 103 mEq/L (98-107); Potassium 4.4 mEq/L (3.5-5.1); Sodium 135 mEq/L (136-145); eGFR For African Americans > 60 (> 60)
[2021-04-03 06:53] LABS: Calcium 8.7 mg/dL (8.6-10.3); Glucose 109 mg/dL (70-105); Magnesium 1.9 mg/dL (1.6-2.6); Osmolality,Calculated 280 (280-300); Phosphorous 3.8 mg/dL (2.7-4.5); eGFR For Non-African Americans > 60 (> 60)
[2021-04-03] MEDS: rOPINIRole 0.25 MG TABLET PO SCH (11:38)
[2021-04-03] MEDS: *HR* Ticagrelor 90 MG TABLET PO SCH (11:39)
[2021-04-03] MEDS: Aspirin Enteric Coated 81 MG Tablet PO SCH (11:40)
[2021-04-03 13:51] LABS: Prothrombin Time 11.1 Seconds (9.4-12.1)
[2021-04-03] MEDS: *HR* Ticagrelor 90 MG TABLET GTUBE SCH (20:20)
[2021-04-03] MEDS: Melatonin 3 MG TABLET GTUBE PRN (20:20)
[2021-04-04 04:54] LABS: Hematocrit 37.6 % (37.5-50.1); Hemoglobin 12.3 g/dL (12.9-16.9); Mean Corpuscular HGB Conc 32.7 g/dL (31.6-35.5); Mean Corpuscular Hemoglobin 28.9 pg (28.0-33.3); Mean Corpuscular Volume 88.5 fL (83.0-100.0); Mean Platelet Volume 9.4 fL (9.4-12.4); Platelet Count 845 K/mcL (140-400); Red Blood Count 4.25 M/mcL (4.19-5.50); White Blood Count 8.6 K/mcL (4.3-11.1)
[2021-04-04 05:04] LABS: BUN/Creatinine Ratio 24 (6-26); Blood Urea Nitrogen 11 mg/dL (6-20); Calcium 8.8 mg/dL (8.6-10.3); Carbon Dioxide 26 mEq/L (23-29); Chloride 100 mEq/L (98-107); Glucose 118 mg/dL (70-105); Osmolality,Calculated 276 (280-300); Potassium 4.2 mEq/L (3.5-5.1); Sodium 133 mEq/L (136-145); eGFR For African Americans > 60 (> 60); eGFR For Non-African Americans > 60 (> 60)
[2021-04-04] MEDS: GuaiFENesin Liq 200 MG/10 ML UDC GTUBE SCH ×3 (05:33→17:34)
[2021-04-04] MEDS: rOPINIRole 0.25 MG TABLET GTUBE SCH (10:02)
[2021-04-04] MEDS: lisinopriL 5 MG TABLET GTUBE SCH (10:03)
[2021-04-04] MEDS: *HR* Ticagrelor 90 MG TABLET GTUBE SCH ×2 (10:03→21:42)
[2021-04-04] MEDS: Aspirin 81 MG TAB.CHEW GTUBE SCH (10:03)
[2021-04-04] MEDS: Ondansetron 4 MG/2 ML VIAL IVP PRN (21:41)
[2021-04-04] MEDS: Latanoprost 2.5 ML BOTTLE BOTH EYES SCH (21:42)
[2021-04-04] MEDS: Melatonin 3 MG TABLET GTUBE PRN (21:42)
[2021-04-05] MEDS: GuaiFENesin Liq 200 MG/10 ML UDC GTUBE SCH ×4 (00:51→17:30)
[2021-04-05] MEDS: Aspirin 81 MG TAB.CHEW GTUBE SCH (08:20)
[2021-04-05] MEDS: lisinopriL 5 MG TABLET GTUBE SCH (08:21)
[2021-04-05] MEDS: *HR* Ticagrelor 90 MG TABLET GTUBE SCH ×2 (08:21→20:10)
[2021-04-05] MEDS: Latanoprost 2.5 ML BOTTLE BOTH EYES SCH (20:08)
[2021-04-05] MEDS: Melatonin 3 MG TABLET GTUBE PRN (22:09)
[2021-04-06] MEDS: GuaiFENesin Liq 200 MG/10 ML UDC GTUBE SCH ×4 (00:37→17:23)
[2021-04-06] MEDS: rOPINIRole 0.25 MG TABLET GTUBE SCH (07:45)
[2021-04-06] MEDS: Aspirin 81 MG TAB.CHEW GTUBE SCH (07:47)
[2021-04-06] MEDS: lisinopriL 5 MG TABLET GTUBE SCH (07:47)
[2021-04-06] MEDS: *HR* Ticagrelor 90 MG TABLET GTUBE SCH ×2 (07:47→22:26)
[2021-04-06] MEDS: Latanoprost 2.5 ML BOTTLE BOTH EYES SCH (22:27)
[2021-04-06] MEDS: Melatonin 3 MG TABLET GTUBE PRN (22:38)
[2021-04-07] MEDS: GuaiFENesin Liq 200 MG/10 ML UDC GTUBE SCH ×4 (00:38→16:10)
[2021-04-07] MEDS: rOPINIRole 0.25 MG TABLET GTUBE SCH (08:35)
[2021-04-07] MEDS: lisinopriL 5 MG TABLET GTUBE SCH (08:35)
[2021-04-07] MEDS: Aspirin 81 MG TAB.CHEW GTUBE SCH (08:35)
[2021-04-07] MEDS: *HR* Ticagrelor 90 MG TABLET GTUBE SCH ×2 (08:35→20:35)
[2021-04-07] MEDS: Melatonin 3 MG TABLET GTUBE PRN (20:35)
[2021-04-07] MEDS: Latanoprost 2.5 ML BOTTLE BOTH EYES SCH (20:36)
[2021-04-08] MEDS: GuaiFENesin Liq 200 MG/10 ML UDC GTUBE SCH ×4 (00:20→18:15)
[2021-04-08] MEDS: rOPINIRole 0.25 MG TABLET GTUBE SCH ×2 (07:25→08:22)
[2021-04-08] MEDS: lisinopriL 5 MG TABLET GTUBE SCH (08:21)
[2021-04-08] MEDS: Aspirin 81 MG TAB.CHEW GTUBE SCH (08:22)
[2021-04-08] MEDS: *HR* Ticagrelor 90 MG TABLET GTUBE SCH ×2 (08:22→21:40)
[2021-04-08 09:13] LABS: % Iron Saturation 15 % (20-55); Iron 42 mcg/dL (65-175); Transferrin 201 mg/dL (203-362)
[2021-04-08 09:31] LABS: Ferritin 161 ng/mL (20-250)
[2021-04-08] MEDS: Ondansetron 4 MG/2 ML VIAL IVP PRN (19:28)
[2021-04-08] MEDS: Melatonin 3 MG TABLET GTUBE PRN (21:40)
[2021-04-08] MEDS: Latanoprost 2.5 ML BOTTLE BOTH EYES SCH (22:56)
[2021-04-09] MEDS: GuaiFENesin Liq 200 MG/10 ML UDC GTUBE SCH ×4 (01:59→17:44)
[2021-04-09] MEDS: rOPINIRole 0.25 MG TABLET GTUBE SCH (07:33)
[2021-04-09] MEDS: *HR* Ticagrelor 90 MG TABLET GTUBE SCH ×2 (07:33→20:22)
[2021-04-09] MEDS: Aspirin 81 MG TAB.CHEW GTUBE SCH (07:33)
[2021-04-09] MEDS: lisinopriL 5 MG TABLET GTUBE SCH (07:34)
[2021-04-09] MEDS: Latanoprost 2.5 ML BOTTLE BOTH EYES SCH (20:19)
[2021-04-10] MEDS: Melatonin 3 MG TABLET GTUBE PRN (00:33)
[2021-04-10] MEDS: GuaiFENesin Liq 200 MG/10 ML UDC GTUBE SCH ×4 (00:33→20:06)
[2021-04-10] MEDS ORDERED: Ketorolac 30 MG/ML VIAL IVP ONE (00:45)
[2021-04-10] MEDS: *HR* Ticagrelor 90 MG TABLET GTUBE SCH ×2 (09:25→20:07)
[2021-04-10] MEDS: rOPINIRole 0.25 MG TABLET GTUBE SCH (09:25)
[2021-04-10] MEDS: lisinopriL 5 MG TABLET GTUBE SCH (09:25)
[2021-04-10] MEDS: Aspirin 81 MG TAB.CHEW GTUBE SCH (09:25)
[2021-04-10] MEDS ORDERED: E-Z-HD (BARIUM SULF) SUSPENSION PO ONE (14:58)
[2021-04-10] MEDS ORDERED: E-Z-PAQUE (BARIUM SULF) SUSP 1 BOTTLE PO ONE (14:58)
[2021-04-10 19:10] VITALS: BP 115/75; PULSE 90; TEMP 97.9; O2SAT 95
[2021-04-10] MEDS: Latanoprost 2.5 ML BOTTLE BOTH EYES SCH (20:09)
== END 2021-04-10 20:48 | DRG 391 ==
LOC: 3NENU 16:15 → EMEROOARM 16:15 → 3NENU 23:26 → SUATTDRO 03-23 17:10 → 3ANU 03-28 20:12
PROVIDERS: ADMIT Student in an Organized Health Care Education/Training Program; ATTEND Internal Medicine
PROC: ENDOEDS (2021-03-30 09:20)